=== PATIENT | female | born 1950 | race Hispanic/Latino ===

== ENCOUNTER 2023-03-08 10:08 | Emergency (ER) | payer OTHER ==
[~2023-03-08] VITALS: Ht 175.3 cm; Wt 90.3 kg
[2023-03-08 10:46] LABS: APPEARANCE,URINE TURBID (CLEAR); BILIRUBIN,URINE MODERATE mg/dL (NEGATIVE); COLOR,URINE YELLOW (YELLOW); GLUCOSE, URINE (UA) NEGATIVE (NEGATIVE); KETONES,URINE 15 mg/dL (NEGATIVE); LEUKOCYTE ESTERASE ,URINE LARGE Leu/uL (NEGATIVE); NITRATE,URINE NEGATIVE (NEGATIVE); OCCULT BLOOD,URINE SMALL (NEGATIVE); PH,URINE 5.5 (5.0-8.0); PROTEIN,URINE >=300 mg/dL (NEGATIVE)
[2023-03-08 10:53] LABS: BASOPHILS # (AUTO) 0.08 K/uL (0.00-0.20); BASOPHILS % (AUTO) 0.9 % (0.0-5.0); EOSINOPHILS # (AUTO) 0.12 K/uL (0.00-0.70); EOSINOPHILS % (AUTO) 1.3 % (0.0-8.0); HEMATOCRIT 39.9 % (36-48); IMMATURE GRANULOCYTE ABSOLUTE 0.03 K/uL (0-1); LYMPHOCYTES # (AUTO) 2.2 K/uL (1.0-4.8); LYMPHOCYTES % (AUTO) 24.2 % (21.0-51.0); MEAN CORPUSCULAR HEMOGLOBIN 29.9 pg (27.0-33.0); MEAN CORPUSCULAR HGB CONC 33.8 g/dL (32.0-36.0); MEAN CORPUSCULAR VOLUME 88.3 fL (79-99); MONOCYTES # (AUTO) 0.7 K/uL (0.1-1.0); MONOCYTES % (AUTO) 7.8 % (3.0-13.0); NEUTROPHILS # (AUTO) 5.9 K/uL (1.8-7.7); NEUTROPHILS % (AUTO) 65.5 % (40.0-77.0); PLATELET COUNT (AUTO) 269 K/uL (130-400); RED BLOOD CELL COUNT(AUTO) 4.52 MIL/uL (4.00-5.50); RED CELL DISTRIBUTION WIDTH 13.2 % (11.0-15.5)
[2023-03-08 10:54] LABS: ADD UA MICROSCOPIC YES
[2023-03-08 10:58] LABS: BACTERIA,URINE Many /HPF (None Seen); RBC,URINE 0-1 /HPF (0-1); SQUAMOUS EPITHELIAL CELL,UR Rare /HPF (0-2); WBC,URINE TNTC /HPF (0-1)
[2023-03-08 10:59] LABS: MUCUS,URINE Few LPF (None Seen)
[2023-03-08 11:01] LABS: CREATININE 0.9 mg/dL (0.5-1.5); POTASSIUM 4.5 mmol/L (3.5-5.1)
[2023-03-08 11:05] LABS: ALBUMIN 3.5 g/dL (3.5-5.0); BILIRUBIN,TOTAL 0.3 mg/dL (0.2-1.0); TOTAL PROTEIN, SERUM 7.9 g/dL (6.0-8.3)
[2023-03-08 12:01] VITALS: BP 124/77; PULSE 79; RESP 18; O2SAT 99
[2023-03-08] MEDS ORDERED: MACR100 PO (12:10)
== END 2023-03-08 13:12 | disposition home or self-care (01) ==
LOC: EDH 10:08
DX: N39.0 Urinary tract infection, site not specified (principal); E11.9 Type 2 diabetes mellitus without complications; E78.00 Pure hypercholesterolemia, unspecified; Z20.822 Contact with and (suspected) exposure to COVID-19
CPT/HCPCS: 36415; 80053; 81001; 85025; 87077; 87088; 87186; 93005

== ENCOUNTER → 2024-04-26 | Outpatient (CLI) | payer OTHER ==
[~2024-04-26] MED LIST: MACR100 PO
--- NOTE | 2024-04-26 12:38 | HMCIMG ---
DEXA BONE DENSITY SURVEY REASON: AGE-RELATED OSTEOPOROSIS W/O CURRENT PATHOLOGICAL FX COMPARISON: None TECHNIQUE: DEXA bone densitometry was performed of the lumbar spine and left hip. FINDINGS: Mean bone mass density in the spine is 0.898 g per standard square, T score -1.4, consistent with osteopenia. Femoral neck T score is also -1.4 corresponding with osteopenia. IMPRESSION: 1. Osteopenia indicating a moderate fracture risk.
== END | disposition home or self-care (01) ==
LOC: RAH 09:29
PROVIDERS: ATTEND Internal Medicine
DX: M81.0 Age-related osteoporosis without current pathological fracture (principal); M85.88 Other specified disorders of bone density and structure, other site
CPT/HCPCS: 77080